=== PATIENT | female | born 1955 | race Caucasian/White ===

== ENCOUNTER 2020-06-08 21:51 | Inpatient (IN) ==
[2020-06-08 22:38] LABS: Basophils % 0.1 %
[2020-06-08 22:40] LABS: Eosinophils # 0.1 K/mcL (0.0-0.6); Eosinophils % 1.1 %; Hematocrit 39.5 % (35.3-44.9); Hemoglobin 10.1 g/dL (11.5-15.4); Immature Granulocytes % 0.4 % (0-4); Lymphocytes # 0.7 K/mcL (0.6-4.6); Lymphocytes % 9.2 %; Mean Corpuscular HGB Conc 25.6 g/dL (31.6-35.5); Mean Corpuscular Hemoglobin 22.3 pg (28.0-33.3); Mean Corpuscular Volume 87.4 fL (83.0-100.0); Mean Platelet Volume 10.8 fL (9.4-12.4); Monocytes # 0.5 K/mcL (0.0-1.3); Monocytes % 6.6 %; Platelet Count 191 K/mcL (140-400); Red Blood Count 4.52 M/mcL (3.82-4.97); Red Cell Distribution Width 22.2 % (11.5-14.5); Segmented Neutrophils % 82.6 %; White Blood Count 7.3 K/mcL (4.3-11.1)
[2020-06-08 23:03] LABS: BUN/Creatinine Ratio 25 (6-26); Blood Urea Nitrogen 17 mg/dL (8-23); Carbon Dioxide 39 mEq/L (23-29); Chloride 96 mEq/L (98-107); Glucose 108 mg/dL (70-105); Osmolality,Calculated 290 (280-300); Potassium 3.9 mEq/L (3.5-5.1); Sodium 139 mEq/L (136-145); eGFR For African Americans > 60 (> 60); eGFR For Non-African Americans > 60 (> 60)
[2020-06-08 23:10] LABS: Anisocytosis 1+ (Not Present)
[2020-06-08 23:11] LABS: Hypochromasia Present (Not Present); Large Platelets Present (Not Present); Macrocytosis Present (Not Present); Microcytosis Present (Not Present); Ovalocytes 1+ (Not Present); Platelet Estimate Normal (Normal); Polychromasia 1+ (Not Present); Stomatocytes 1+ (Not Present)
[2020-06-08 23:12] LABS: Troponin I 0.04 ng/mL (< 0.04)
[2020-06-08 23:29] LABS: INR 1.4; Prothrombin Time 15.7 Seconds (9.4-12.1)
[2020-06-08] MEDS ORDERED: levoFLOXacin 750 MG/150 ML 750 MG/150 ML BAG IVPB SCH (23:45)
[2020-06-08] MEDS ORDERED: Furosemide 40 MG/4 ML VIAL IVP ONE (23:52)
[2020-06-09] MEDS ORDERED: *HR* Heparin 5,000 UNIT/ML VIAL IVP ONE (00:17)
[2020-06-09] MEDS ORDERED: *HR* Heparin 5,000 UNIT/ML VIAL IVP PRN ×2 (00:17)
[2020-06-09] MEDS ORDERED: Ondansetron 4 MG/2 ML VIAL IVP PRN (00:26)
[2020-06-09] MEDS ORDERED: Naloxone 0.4 MG/ML INJ IVP PRN (00:26)
[2020-06-09] MEDS ORDERED: Perflutren Lipid Microsphere 1.3 ML in 0.9 % Sodium Chloride 8.7 ML IVP PRN (00:30)
[2020-06-09] MEDS ORDERED: Heparin 25,000UNIT/250ML 1/2NS 25,000 UNIT/250 ML IV.SOLN IVC SCH (00:30)
[2020-06-09] MEDS ORDERED: Nitroglycerin 0.4 MG TAB.SUBL SL PRN (00:42)
[2020-06-09] MEDS ORDERED: Dextrose Gel 15 GM/37.5 ML TUBE PO PRN ×2 (00:50)
[2020-06-09] MEDS ORDERED: D5% in Water 1,000 ML IVC PRN (00:50)
[2020-06-09] MEDS ORDERED: *HR* Dextrose 50 % in Water (Vial) 50 ML VIAL IVP PRN (00:50)
[2020-06-09 01:28] LABS: Heparin anti-factor XA UFH < 0.04 IU/mL (0.30-0.70); INR 1.3; Prothrombin Time 14.8 Seconds (9.4-12.1)
[2020-06-09 01:50] LABS: Adenovirus Not Detected (Not Detect); Bordetella Pertussis Not Detected (Not Detect); Chlamydophila pneumoniae Not Detected (Not Detect); Coronavirus 229E Not Detected (Not Detect); Coronavirus HKU1 Not Detected (Not Detect); Coronavirus NL63 Not Detected (Not Detect); Coronavirus OC43 Not Detected (Not Detect); Human Metapneumovirus Not Detected (Not Detect); Human Rhinovirus/Enterovirus Not Detected (Not Detect); Influenza A Subtype 2009 H1 Not Detected (Not Detect); Influenza B Not Detected (Not Detect); Mycoplasma pneumoniae Not Detected (Not Detect); Parainfluenza Virus 1 Not Detected (Not Detect); Parainfluenza Virus 2 Not Detected (Not Detect); Parainfluenza Virus 3 Not Detected (Not Detect); Parainfluenza Virus 4 Not Detected (Not Detect); Respiratory Syncytial Virus Not Detected (Not Detect); SARS-CoV-2 Not Detected (Not Detect)
[2020-06-09] MEDS: Aspirin 81 MG TAB.CHEW PO SCH (02:00)
[2020-06-09 05:18] LABS: Hemoglobin 10.1 g/dL (11.5-15.4)
[2020-06-09 05:20] LABS: Hematocrit 39.4 % (35.3-44.9); Mean Corpuscular HGB Conc 25.6 g/dL (31.6-35.5); Mean Corpuscular Hemoglobin 22.4 pg (28.0-33.3); Mean Corpuscular Volume 87.6 fL (83.0-100.0); Mean Platelet Volume 10.9 fL (9.4-12.4); Platelet Count 170 K/mcL (140-400); Red Cell Distribution Width 22.3 % (11.5-14.5); White Blood Count 6.8 K/mcL (4.3-11.1)
[2020-06-09 05:24] LABS: INR 1.4; Prothrombin Time 16.3 Seconds (9.4-12.1)
[2020-06-09 05:41] LABS: BUN/Creatinine Ratio 25 (6-26); Blood Urea Nitrogen 15 mg/dL (8-23); Calcium 9.1 mg/dL (8.6-10.3); Carbon Dioxide 39 mEq/L (23-29); Chloride 94 mEq/L (98-107); Cholesterol 74 mg/dL (< 200); Glucose 67 mg/dL (70-105); HDL Cholesterol 37 mg/dL (40-59); LDL Cholesterol,Calculated 28 mg/dL (< 100); Osmolality,Calculated 285 (280-300); Potassium 3.5 mEq/L (3.5-5.1); Sodium 138 mEq/L (136-145); Triglycerides 43 mg/dL (< 150); Troponin I 0.03 ng/mL (< 0.04); eGFR For African Americans > 60 (> 60); eGFR For Non-African Americans > 60 (> 60)
[2020-06-09 05:51] LABS: Activated Partial Thrombo Time 144.5 Seconds (26.0-36.0)
[2020-06-09] MEDS: Insulin LISPRO 300 UNITS/3 ML VIAL SUBQ SCH ×4 (07:32→23:30)
[2020-06-09] MEDS: Ipratropium/Albuterol Neb 3 ML IH SCH ×5 (08:09→20:24)
[2020-06-09] MEDS: predniSONE 20 MG TABLET PO SCH (08:20)
[2020-06-09] MEDS: Furosemide 40 MG/4 ML VIAL IVP SCH ×2 (08:20→19:38)
[2020-06-09] MEDS: Azithromycin 500 MG in 0.9 % Sodium Chloride 250 ML IVPB SCH (12:04)
[2020-06-09] MEDS: Morphine Sulfate 2 MG/ML SYRINGE IVP PRN ×2 (17:41→21:54)
[2020-06-10] MEDS: Ipratropium/Albuterol Neb 3 ML IH SCH ×7 (00:11→23:54)
[2020-06-10 05:15] LABS: Hematocrit 33.8 % (35.3-44.9); Hemoglobin 8.8 g/dL (11.5-15.4); Mean Corpuscular Hemoglobin 22.4 pg (28.0-33.3); Mean Corpuscular Volume 86.2 fL (83.0-100.0); Mean Platelet Volume 11.7 fL (9.4-12.4); Platelet Count 143 K/mcL (140-400); Red Blood Count 3.92 M/mcL (3.82-4.97); White Blood Count 5.5 K/mcL (4.3-11.1)
[2020-06-10 05:35] LABS: BUN/Creatinine Ratio 37 (6-26); Blood Urea Nitrogen 23 mg/dL (8-23); Calcium 8.9 mg/dL (8.6-10.3); Carbon Dioxide 43 mEq/L (23-29); Chloride 94 mEq/L (98-107); Glucose 97 mg/dL (70-105); Osmolality,Calculated 294 (280-300); Potassium 3.5 mEq/L (3.5-5.1); Sodium 140 mEq/L (136-145); eGFR For African Americans > 60 (> 60); eGFR For Non-African Americans > 60 (> 60)
[2020-06-10] MEDS: Insulin LISPRO 300 UNITS/3 ML VIAL SUBQ SCH ×3 (06:25→17:56)
[2020-06-10 08:20] LABS: ABG Base Excess 17 mEq/L (-2 to 3); ABG HCO3 44 mEq/L (21-27); ABG Oxygen Saturation 94 % (95-98); ABG PCO2 72 mmHg (35-45); ABG PO2 74 mmHg (85-104); ABG TCO2 47 mEq/L (20-26)
[2020-06-10] MEDS: Aspirin 81 MG TAB.CHEW PO SCH (08:43)
[2020-06-10] MEDS: predniSONE 20 MG TABLET PO SCH (08:43)
[2020-06-10] MEDS: lisinopriL 10 MG TABLET PO SCH (08:44)
[2020-06-10] MEDS: Folic Acid 1 MG TABLET PO SCH (08:44)
[2020-06-10] MEDS: Furosemide 40 MG/4 ML VIAL IVP SCH ×2 (08:44→21:52)
[2020-06-10] MEDS ORDERED: Isovue-370 500 ML BOTTLE IVP ONE (08:50)
[2020-06-10] MEDS: Azithromycin 500 MG in 0.9 % Sodium Chloride 250 ML IVPB SCH (12:18)
[2020-06-10] MEDS: *HR* Heparin 5,000 UNIT/ML VIAL SQ SCH ×2 (12:19→21:29)
[2020-06-10] MEDS ORDERED: *HR* Methotrexate 2.5 MG TABLET PO SCH (16:54)
[2020-06-10] MEDS: Morphine Sulfate 2 MG/ML SYRINGE IVP PRN (18:06)
[2020-06-11] MEDS: Ipratropium/Albuterol Neb 3 ML IH SCH ×5 (04:04→20:21)
[2020-06-11] MEDS: Insulin LISPRO 300 UNITS/3 ML VIAL SUBQ SCH ×6 (04:17→22:55)
[2020-06-11] MEDS: *HR* Heparin 5,000 UNIT/ML VIAL SQ SCH ×3 (05:06→20:49)
[2020-06-11] MEDS ORDERED: Furosemide 40 MG/4 ML VIAL IVP ONE (07:19)
[2020-06-11] MEDS: Aspirin Enteric Coated 81 MG Tablet PO SCH (07:44)
[2020-06-11] MEDS: predniSONE 20 MG TABLET PO SCH (07:45)
[2020-06-11] MEDS: lisinopriL 10 MG TABLET PO SCH (07:45)
[2020-06-11] MEDS: Folic Acid 1 MG TABLET PO SCH (07:45)
[2020-06-11] MEDS: Furosemide 40 MG/4 ML VIAL IVP SCH ×2 (10:38→20:49)
[2020-06-11] MEDS: Morphine Sulfate 2 MG/ML SYRINGE IVP PRN (10:38)
[2020-06-11 10:53] LABS: Hemoglobin 9.5 g/dL (11.5-15.4); Mean Corpuscular Volume 85.1 fL (83.0-100.0)
[2020-06-11 10:55] LABS: Hematocrit 36.1 % (35.3-44.9); Immature Platelets 8.1 % (1.1-6.1); Mean Corpuscular HGB Conc 26.3 g/dL (31.6-35.5); Mean Corpuscular Hemoglobin 22.4 pg (28.0-33.3); Mean Platelet Volume 10.9 fL (9.4-12.4); Red Blood Count 4.24 M/mcL (3.82-4.97); Red Cell Distribution Width 22.4 % (11.5-14.5); White Blood Count 7.5 K/mcL (4.3-11.1)
[2020-06-11 11:19] LABS: BUN/Creatinine Ratio 36 (6-26); Blood Urea Nitrogen 22 mg/dL (8-23); Carbon Dioxide 42 mEq/L (23-29); Chloride 92 mEq/L (98-107); Glucose 157 mg/dL (70-105); Osmolality,Calculated 297 (280-300); Potassium 3.3 mEq/L (3.5-5.1); Sodium 140 mEq/L (136-145); eGFR For African Americans > 60 (> 60); eGFR For Non-African Americans > 60 (> 60)
[2020-06-11 11:57] LABS: Magnesium 1.5 mg/dL (1.6-2.6)
[2020-06-11] MEDS: Azithromycin 500 MG in 0.9 % Sodium Chloride 250 ML IVPB SCH (13:43)
[2020-06-11] MEDS ORDERED: Magnesium Oxide 400 MG TABLET PO ONE (16:37)
[2020-06-12] MEDS: Ipratropium/Albuterol Neb 3 ML IH SCH ×7 (00:09→23:37)
[2020-06-12 02:15] LABS: Hematocrit 35.4 % (35.3-44.9); Hemoglobin 9.5 g/dL (11.5-15.4); Mean Corpuscular HGB Conc 26.8 g/dL (31.6-35.5); Mean Corpuscular Volume 85.7 fL (83.0-100.0); Mean Platelet Volume 10.3 fL (9.4-12.4); Platelet Count 150 K/mcL (140-400); Red Blood Count 4.13 M/mcL (3.82-4.97); Red Cell Distribution Width 22.4 % (11.5-14.5)
[2020-06-12 02:59] LABS: BUN/Creatinine Ratio 47 (6-26); Blood Urea Nitrogen 24 mg/dL (8-23); Carbon Dioxide 43 mEq/L (23-29); Chloride 92 mEq/L (98-107); Glucose 103 mg/dL (70-105); Osmolality,Calculated 294 (280-300); Potassium 3.7 mEq/L (3.5-5.1); Sodium 140 mEq/L (136-145); eGFR For African Americans > 60 (> 60); eGFR For Non-African Americans > 60 (> 60)
[2020-06-12] MEDS: *HR* Heparin 5,000 UNIT/ML VIAL SQ SCH ×3 (05:58→20:39)
[2020-06-12] MEDS: Folic Acid 1 MG TABLET PO SCH (09:00)
[2020-06-12] MEDS: lisinopriL 10 MG TABLET PO SCH (09:01)
[2020-06-12] MEDS: Aspirin Enteric Coated 81 MG Tablet PO SCH (09:01)
[2020-06-12] MEDS: predniSONE 20 MG TABLET PO SCH (09:01)
[2020-06-12] MEDS: Furosemide 40 MG/4 ML VIAL IVP SCH (09:01)
[2020-06-12] MEDS: Azithromycin 500 MG in 0.9 % Sodium Chloride 250 ML IVPB SCH (12:39)
[2020-06-12] MEDS: Insulin LISPRO 300 UNITS/3 ML VIAL SUBQ SCH ×2 (17:04→20:39)
[2020-06-12] MEDS: Furosemide 40 MG TABLET PO SCH (17:04)
[2020-06-13] MEDS: Ipratropium/Albuterol Neb 3 ML IH SCH ×6 (03:55→23:35)
[2020-06-13] MEDS: *HR* Heparin 5,000 UNIT/ML VIAL SQ SCH ×3 (04:57→22:00)
[2020-06-13 06:56] LABS: Hematocrit 34.3 % (35.3-44.9); Hemoglobin 9.3 g/dL (11.5-15.4); Immature Platelets 6.6 % (1.1-6.1); Mean Corpuscular HGB Conc 27.1 g/dL (31.6-35.5); Mean Corpuscular Hemoglobin 22.9 pg (28.0-33.3); Mean Corpuscular Volume 84.5 fL (83.0-100.0); Mean Platelet Volume 11.3 fL (9.4-12.4); Red Blood Count 4.06 M/mcL (3.82-4.97); Red Cell Distribution Width 22.2 % (11.5-14.5); White Blood Count 5.7 K/mcL (4.3-11.1)
[2020-06-13] MEDS: Insulin LISPRO 300 UNITS/3 ML VIAL SUBQ SCH ×4 (07:02→20:36)
[2020-06-13 07:15] LABS: BUN/Creatinine Ratio 54 (6-26); Blood Urea Nitrogen 28 mg/dL (8-23); Calcium 8.9 mg/dL (8.6-10.3); Carbon Dioxide 39 mEq/L (23-29); Chloride 96 mEq/L (98-107); Glucose 97 mg/dL (70-105); Osmolality,Calculated 291 (280-300); Potassium 3.7 mEq/L (3.5-5.1); Sodium 138 mEq/L (136-145); eGFR For African Americans > 60 (> 60); eGFR For Non-African Americans > 60 (> 60)
[2020-06-13] MEDS: predniSONE 20 MG TABLET PO SCH (08:12)
[2020-06-13] MEDS: Aspirin Enteric Coated 81 MG Tablet PO SCH (08:12)
[2020-06-13] MEDS: lisinopriL 10 MG TABLET PO SCH (08:12)
[2020-06-13] MEDS: Folic Acid 1 MG TABLET PO SCH (08:12)
[2020-06-13] MEDS: Furosemide 40 MG TABLET PO SCH ×2 (08:12→16:05)
[2020-06-13] MEDS ORDERED: Azithromycin 250 MG TABLET PO SCH ×2 (12:00→15:15)
[2020-06-13] MEDS: Gabapentin 300 MG CAPSULE PO SCH (23:49)
[2020-06-14] MEDS: Ipratropium/Albuterol Neb 3 ML IH SCH ×4 (03:37→11:43)
[2020-06-14] MEDS ORDERED: *HR* Enoxaparin 40 MG/0.4 ML SYRINGE SQ SCH (06:00)
[2020-06-14 07:04] LABS: Hematocrit 35.1 % (35.3-44.9); Hemoglobin 9.1 g/dL (11.5-15.4); Mean Corpuscular HGB Conc 25.9 g/dL (31.6-35.5); Mean Corpuscular Hemoglobin 22.1 pg (28.0-33.3); Mean Corpuscular Volume 85.4 fL (83.0-100.0); Mean Platelet Volume 10.7 fL (9.4-12.4); Platelet Count 166 K/mcL (140-400); Red Blood Count 4.11 M/mcL (3.82-4.97); Red Cell Distribution Width 22.2 % (11.5-14.5); White Blood Count 6.9 K/mcL (4.3-11.1)
[2020-06-14] MEDS: Insulin LISPRO 300 UNITS/3 ML VIAL SUBQ SCH ×2 (07:17→12:08)
[2020-06-14 07:23] LABS: BUN/Creatinine Ratio 53 (6-26); Blood Urea Nitrogen 27 mg/dL (8-23); Calcium 8.9 mg/dL (8.6-10.3); Carbon Dioxide 36 mEq/L (23-29); Chloride 97 mEq/L (98-107); Glucose 102 mg/dL (70-105); Osmolality,Calculated 291 (280-300); Potassium 3.7 mEq/L (3.5-5.1); Sodium 138 mEq/L (136-145); eGFR For African Americans > 60 (> 60); eGFR For Non-African Americans > 60 (> 60)
[2020-06-14] MEDS: lisinopriL 10 MG TABLET PO SCH (07:32)
[2020-06-14] MEDS: Furosemide 40 MG TABLET PO SCH (07:32)
[2020-06-14] MEDS: predniSONE 20 MG TABLET PO SCH (07:32)
[2020-06-14] MEDS: Folic Acid 1 MG TABLET PO SCH (07:32)
[2020-06-14] MEDS: Aspirin Enteric Coated 81 MG Tablet PO SCH (07:32)
[2020-06-14] MEDS: Gabapentin 300 MG CAPSULE PO SCH (07:32)
[2020-06-14 15:24] VITALS: BP 145/74
== END 2020-06-14 15:24 | disposition home health service (06) | DRG 280 ==
LOC: EMEROOARM 21:51 → 2ANU 21:51 → SUATTDRO 06-09 02:05 → 2ANU 06-09 03:31 → SUATTDRO 06-10 14:14
PROVIDERS: ADMIT Student in an Organized Health Care Education/Training Program; ATTEND Internal Medicine